=== PATIENT | female | born 1950 | race Caucasian/White ===

== ENCOUNTER → 2017-11-19 | Outpatient (CLI) | payer OTHER ==
[~2017-11-19] MED LIST: FISH OIL300 MG PO; PANTOPRAZOLE SO40 MG PO; PRAVASTATIN PO; SYNTHROID125 MCG PO
--- NOTE | 2017-11-19 12:51 | Diagnostic Imaging Report ---
PROCEDURE:PELVIC ULTRASOUND COMPARISON:None. INDICATIONS:LOWER ABDOMINAL TENDERNESS, BLOATING TECHNIQUE:A pelvic ultrasound was completed in the usual manner. FINDINGS: UTERUS: Size is 5.3 x 4.1 x 4 cm with heterogeneous echotexture. Multiple fibroids, including: * Left upper uterine 2.1 x 2.3 x 2.2 cm subserosal exophytic fibroid * Left uterine 2.2 x 1.8 x 2.1 cm partially calcified subserosal fibroid * Left uterine 1.5 x 0.8 x 0.9 cm intramural fibroid. Endometrial thickness is 7 mm, within normal limits in the absence of postmenopausal bleeding and mildly thickened if postmenopausal bleeding is present. There is suggestion of a 0.6 x 0.9 cm rounded hyperechoic prominence within the endometrial cavity which is partially outlined by a trace amount of fluid (for example on time stamp 11:53:22 AM). No definite vascular stalk is identified. OVARIES: Right ovary measures 1.8 x 1.1 x 0.9 cm. No masses or cysts. Left ovary not visualized. Left adnexal 4.1 x 2.7 x 3.3 cm anechoic cyst without nodule or septation. CUL-DE-SAC:Trace free fluid, nonspecific. OTHER:Negative. CONCLUSION: 1. Questionable subcentimeter endometrial polyp. Consider saline infused hysterosonography for further evaluation. 2. Multiple uterine fibroids. 3. Left adnexal 4.1 cm simple appearing cyst. Recommend follow up pelvic ultrasound in 12 months. Dictated by: Harvinder Tan M.D. on 11/19/2017 at 12:51 Electronically approved by: Harvinder Tan M.D. on 11/19/2017 at 12:51
--- NOTE | 2017-11-19 12:52 | Diagnostic Imaging Report ---
PROCEDURE:TRANSVAGINAL ULTRASOUND COMPARISON:None. INDICATIONS:LOWER ABDOMINAL TENDERNESS, BLOATING TECHNIQUE: Grayscale transverse and sagittal transabdominal and transvaginal images were obtained of the pelvis. Transvaginal imaging was medically necessary to better evaluate the endometrium and adnexa. FINDINGS: Please see same day additional ultrasound order for full report. CONCLUSION: Please see same day additional ultrasound order for full report. Dictated by: Harvinder Tan M.D. on 11/19/2017 at 12:52 Electronically approved by: Harvinder Tan M.D. on 11/19/2017 at 12:52
== END ==
LOC: US 10:37
PROVIDERS: ATTEND Family Medicine
DX: R10.819 Abdominal tenderness, unspecified site (principal); R14.0 Abdominal distension (gaseous); Z85.3 Personal history of malignant neoplasm of breast
CPT/HCPCS: 76830; 76856

== ENCOUNTER → 2018-10-20 | Outpatient (CLI) | payer OTHER ==
[~2018-10-20] MED LIST changes: +IOPAMIDOL 370 MG/ML 200 ML INFUS..BTL INJ ONE
[2018-10-20 16:51] LABS: BLOOD UREA NITROGEN 14 mg/dL (7-26); BUN/CREATININE RATIO 19 (6-25); CREATININE, SERUM 0.72 mg/dL (0.57-1.11); EST GLOMERULAR FILTRATION RATE > 60 ML/MIN (60-)
--- NOTE | 2018-10-20 18:48 | Diagnostic Imaging Report ---
EXAM: CT Abdomen and Pelvis WITH contrast INDICATION: ^[id number] ^1746 ^LUQ RLQ PAIN; EPIGASTRIC PAIN COMPARISON: None. TECHNIQUE: Abdomen and pelvis were scanned utilizing a multidetector helical scanner from the lung base to the pubic symphysis after administration of IV contrast. Coronal and sagittal reformations were obtained. Routine protocol was performed. Scan was performed when during portal venous phase. IV CONTRAST: 100 mL of Isovue-300 ORAL CONTRAST: Water RADIATION DOSE: Total DLP: ... mGy*cm Estimated effective dose: (DLP x 0.015 x size factor) mSv COMPLICATIONS: None FINDINGS: LINES and TUBES: None. LOWER THORAX: Unremarkable HEPATOBILIARY: Few a scattered low-attenuation cystic lesions throughout the liver measuring up to 1.3 cm appeared to represent simple cysts. No biliary ductal dilation. GALLBLADDER: No radio-opaque stones or sludge. No wall thickening. SPLEEN: No splenomegaly. PANCREAS: No focal masses or ductal dilatation. ADRENALS: No adrenal nodules KIDNEYS/URETERS: Kidneys enhance symmetrically. No hydronephrosis. No cystic or solid mass lesions. No stones. GI TRACT: Mild wall thickening of a few loops of the small bowel in the left upper quadrant and mid abdomen surrounded by mild fat stranding but without bowel dilatation, for example on series 2, image 50 and 53. Appendix is normal. PELVIC ORGANS/BLADDER: There is a well-circumscribed low-attenuation 6.0 x 3.8 x 4.1 cm cystic lesion in the region of the left adnexa on series 2, image 65. There is a calcified fibroid in the fundus of the uterus measuring 1.6 cm. The urinary bladder appears unremarkable. LYMPH NODES: No lymphadenopathy. VESSELS: Atherosclerotic calcifications of the abdominal aorta without aneurysm. PERITONEUM / RETROPERITONEUM: No free air or fluid. BONES: Moderate degenerative changes at L5-S1. SOFT TISSUES: Unremarkable. IMPRESSION: Mild wall thickening and surrounding inflammatory changes of a few loops of the small bowel in the upper abdomen may reflect nonspecific infectious or inflammatory process. Recommend follow-up in 6-8 weeks. Indeterminate large left adnexal cystic lesion measuring up to 6 cm. Recommend further evaluation with pelvic ultrasound and/or MRI pelvis with and without contrast to exclude neoplasm. Signed by: Dr. Susana Falk M.D. on 10/20/2018 6:44 PM
== END ==
LOC: CT 15:50
PROVIDERS: ATTEND Family Medicine
DX: R10.12 Left upper quadrant pain (principal); R10.13 Epigastric pain; R10.31 Right lower quadrant pain
CPT/HCPCS: 36415; 74177; 82565; 84520; Q9967

== ENCOUNTER → 2018-10-27 | Day surgery (SDC) | payer OTHER ==
[2018-10-25 17:15] LABS: BASOPHILS # (AUTO) 0.1 (0.0-0.1); BASOPHILS % 1.2 % (0.0-1.0); EOSINOPHILS # (AUTO) 0.1 (0.0-0.4); EOSINOPHILS % 1.9 % (0.0-6.0); HEMATOCRIT 43.8 % (34.2-44.1); HEMOGLOBIN 14.7 g/dL (12.0-16.0); LYMPHOCYTES # (AUTO) 2.4 (1.0-3.2); LYMPHOCYTES % 31.9 % (18.0-39.1); MEAN CORPUSCULAR HEMOGLOBIN 32.1 pg (28-32); MEAN CORPUSCULAR HGB CONC 33.6 g/dL (31-35); MEAN CORPUSCULAR VOLUME 95.6 fL (81-99); MONOCYTES # (AUTO) 0.7 (0.2-0.8); MONOCYTES % 9.4 % (4.4-11.3); NEUTROPHILS # (AUTO) 4.1 (2.1-6.9); NEUTROPHILS % 55.3 % (38.7-80.0); PLATELET COUNT 285 x10e3/uL (140-360); RED BLOOD COUNT 4.58 x10e6/uL (3.6-5.1); RED CELL DISTRIBUTION WIDTH 12.2 % (11.7-14.4)
[~2018-10-27] MED LIST changes: +ANASTROZOLE1 MG PO; +CITRACAL + BON1 EACH PO; +FENTANYL CITRATE/PF 100MCG/2 ML INJ ONE; +HYOSCYAMINE SULFATE 0.5 MG/ML INJ ONE; +IBANDRONATE SO150 MG PO; -IOPAMIDOL 370 MG/ML 200 ML INFUS..BTL INJ ONE; +MIDAZOLAM HCL 2 MG/2 ML VIAL ONE; +PROPOFOL IV EMULSION 10 MG/ML 50 ML VIAL ONE
--- OUTSIDE RECORDS SUMMARY | 2018-10-27 09:24 | XMS REPORT ---
[facility] Address Unknown Phone Unavailable Care Team Providers Care Generation Manager Name Role Phone PAIGE WILLIAM Unavailable Unavailable Payers Payer Name Policy Type Policy Number Effective Date Expiration Date Problems This patient has no known problems. Allergies, Adverse Reactions, Alerts Allergy Name Allergy Type Status Severity Reaction(s) Onset Date Inactive Date Treating Clinician Comments erythromycin base DA Active MO 2017-02-08 00:00:00 Medications This patient has no known medications. Results Test Description Test Time Test Comments Text Results Atomic Results Result Comments CT ABDOMEN/PELVIS W 2018-10-20 18:08:00 [place] [address] Patient Name: BRO THAYER MR #: [id number] : 1950 Age/Sex: 68/F Req #: [id number] Adm Physician: Ordered by: PAIGE WILLIAM DO Report #: [id number] Location: CT Room/Bed: Procedure: [id number] CT/CT ABDOMEN/PELVIS W Exam Date: 10/20/18 Exam Time: 1746 REPORT STATUS: Signed EXAM: CT Abdomen and Pelvis WITH contrast INDICATION: [id number] LUQ RLQ PAIN; EPIGASTRIC PAIN COMPARISON: None. TECHNIQUE: Abdomen and pelvis were scanned utilizing a multidetector helical scanner from the lung base to the pubic symphysis after administration of IV contrast. Coronal and sagittal reformations were obtained. Routine protocol was performed. Scan was performed when during portal venous phase. IV CONTRAST: 100 mL of Isovue-300 ORAL CONTRAST: Water RADIATION DOSE: Total DLP: ... mGy*cm Estimated effective dose: (DLP x 0.015 x size factor) mSv COMPLICATIONS: None FINDINGS: LINES and TUBES: None. LOWER THORAX: Unremarkable HEPATOBILIARY: Few a scattered low-attenuation cystic lesions throughout the liver measuring up to 1.3 cm appeared to represent simple cysts. No biliary ductal dilation. GALLBLADDER: No radio-opaque stones or sludge. No wall thickening. SPLEEN: No splenomegaly. PANCREAS: No focal masses or ductal dilatation. ADRENALS: No adrenal nodules KIDNEYS/URETERS: Kidneys enhance symmetrically. No hydronephrosis. No cystic or solid mass lesions. No stones . GI TRACT: Mild wall thickening of a few loops of the small bowel in the left upper quadrant and mid abdomen surrounded by mild fat stranding but without bowel dilatation, for example on series 2, image 50 and 53. Appendix is normal. PELVIC ORGANS/BLADDER: There is a well-circumscribed low-attenuation 6.0 x 3.8 x 4.1 cm cystic lesion in the region of the left adnexa on series 2, image 65. There is a calcified fibroid in the fundus of the uterus measuring 1.6 cm. The urinary bladder appears unremarkable. LYMPH NODES: No lymphadenopathy. VESSELS: Atherosclerotic calcifications of the abdominal aorta without aneurysm. PERITONEUM / RETROPERITONEUM: No free air or fluid. BONES: Moderate degenerative changes at L5-S1. SOFT TISSUES: Unremarkable. IMPRESSION: Mild wall thickening and surrounding inflammatory changes of a few loops of the small bowel in the upper abdomen may reflect nonspecific infectious or inflammatory process. Recommend follow-up in 6-8 weeks. Indeterminate large left adnexal cystic lesion measuring up to 6 cm. Recommend further evaluation with pelvic ultrasound and/or MRI pelvis with and without contrast to exclude neoplasm. Signed by: Dr. Cesia Thurman M.D. on 10/20/2018 6:44 PM Dictated By: CESIA THURMAN MD 43 Transcribed By: KAY on 10/20/181843 COPY TO: PAIGE WILLIAM DO US PELVIS COMPLETE NON OB [place] [address] Patient Name: BRO THAYER MR #: [id number] : 1950 Age/Sex: 67/F Req #: [id number] Adm Physician: Ordered by: PAIGE WILLIAM DO Report #: [id number] Location: US Room/Bed: Procedure: [id number] US/US PELVIS COMPLETE NON OB Exam Date: Exam Time: REPORT STATUS: Signed PROCEDURE: PELVIC ULTRASOUND COMPARISON: None. INDICATIONS: LOWER ABDOMINAL TENDERNESS, BLOATING TECHNIQUE: A pelvic ultrasound was completed in the usual manner. FINDINGS: UTERUS: Size is 5.3 x 4.1 x 4 cm with heterogeneous echotexture. Multiple fibroids, including: * Left upper uterine 2.1 x 2.3 x 2.2 cm subserosal exophytic fibroid * Left uterine 2.2 x 1.8 x 2.1 cm partially calcified subserosal fibroid * Left uterine 1.5 x 0.8 x 0.9 cm intramural fibroid. Endometrial thickness is 7 mm, within normal limits in the absence of postmenopausal bleeding and mildly thickened if postmenopausal bleeding is present. There is suggestion of a 0.6 x 0.9 cm rounded hyperechoic prominence within the endometrial cavity which is partially outlined by a trace amount of fluid (for example on time stamp 11:53:22 AM). No definite vascular stalk is identified. OVARIES: Right ovary measures 1.8 x 1.1 x 0.9 cm. No masses or cysts. Left ovary not visualized. Left adnexal 4.1 x 2.7 x 3.3 cm anechoic cyst without nodule or septation. CUL-DE-SAC: Trace free fluid, nonspecific. OTHER: Negative. CONCLUSION: 1. Questionable subcentimeter endometrial polyp. Consider saline infused hysterosonography for further evaluation. 2. Multiple uterine fibroids. 3. Left adnexal 4.1 cm simple appearing cyst. Recommend follow up pelvic ultrasound in 12 months. Dictated by: Harvinder Burt M.D. on 11/19/2017 at 12:51 Electronically approved by: Harvinder Burt M.D. on 11/19/2017 at 12:51 Dictated By: HARVINDER BURT MD 1251 Transcribed By: BERNA on 11/19/17 1251 COPY TO: PAIGE WILLIAM DO TRANSVAGINAL [place] [address] Patient Name: BRO THAYER MR #: [id number] : 1950 Age/Sex: 67/F Req #: [id number] Adm Physician: Ordered by: PAIGE WILLIAM DO Report #: [id number] Location: Room/Bed: Procedure: [id number] US/US TRANSVAGINAL Exam Date: 11/19/17 Exam Time: 1126 REPORT STATUS: Signed PROCEDURE: TRANSVAGINAL ULTRASOUND COMPARISON: None. INDICATIONS: LOWER ABDOMINAL TENDERNESS, BLOATING TECHNIQUE: Grayscale transverse and sagittal transabdominal and transvaginal images were obtained of the pelvis. Transvaginal imaging was medically necessary to better evaluate the endometrium and adnexa. FINDINGS: Please see same day additional ultrasound order for full report. CONCLUSION: Please see same day additional ultrasound order for full report. Dictated by: Harvinder Burt M.D. on 11/19/2017 at 12:52 Electronically approved by: Harvinder Burt M.D. on 11/19/2017 at 12:52 Dictated By: HARVINDER BURT MD 1252 Transcribed By: BERNA on 11/19/17 1252 COPY TO: PAIGE WILLIAM DO
--- OUTSIDE RECORDS SUMMARY | 2018-10-27 09:24 | XMS REPORT | Clinical Summary ---
Author Author [facility] Address Unknown Phone Unavailable Care Team Providers Care Court Advocate Name Role Phone Mickey Dean MD PCP Allergies Comments Active Allergy Reactions Severity Noted Date Stomach Erythromycin Other (See 07/06/2007 Comments) Medications End Date Status Medication Sig Dispensed Refills Start Date Active SYNTHROID 125 mcg tablet 0 7 Active pravastatin (PRAVACHOL) TAKE ONE (1) 0 80 MG tablet TABLET(S) BY 7 MOUTH ONCE A DAY. Active pantoprazole (PROTONIX) TAKE ONE (1) 5 40 MG EC tablet TABLET(S) BY 7 MOUTH EVERY MORNING BEFORE MEALS. Active anastrozole (ARIMIDEX) 1 Take 1 mg by 0 mg chemo tablet mouth daily. Active calcium carb and Take by 0 citrate-vitD3 (CITRACAL + mouth. D SLOW RELEASE) 600 mg calcium- 500 unit tablet extended release 08/08/2019 Active ibandronate (BONIVA) 150 Take 1 tablet 3 tablet 3 mg tablet (150 mg 8 total) by mouth every 30 (thirty) days. Take in AM with glass of water prior to food, don't lie down for 30 minutes. 01/19/2019 Active ibandronate (BONIVA) 150 TAKE ONE (1) 3 tablet 3 mg tabletIndications: TABLET(S) BY 9 Ductal carcinoma in situ MOUTH IN THE (DCIS) of left breast MORNING WITH A GLASS OF WATER PRIOR TO FOOD EVERY 30 DAYS. DO NOT LAY DOWN FOR 30 MINUTES. 03/05/2018 Discontinued anastrozole (ARIMIDEX) 1 Take 1 tablet 30 tablet 11 mg chemo tablet (1 mg total) 7 by mouth daily for 30 days. 10/20/2018 Discontinued ibandronate (BONIVA) 150 Take 1 tablet 3 tablet 3 08/04/201 mg tabletIndications: (150 mg 7 Ductal carcinoma in situ total) by (DCIS) of left breast mouth every 30 (thirty) days. Take in AM with glass of water prior to food, don't lie down for 30 minutes. 06/05/2018 anastrozole (ARIMIDEX) 1 Take 1 tablet 90 tablet 3 03/07/201 mg chemo tablet (1 mg total) 8 by mouth daily for 90 days. 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 Encounters Care Team Description Date Type Specialty Philomena Hobbs MD Ductal carcinoma in situ (DCIS) of left breast 10/20/2018 Refill Oncology Philomena Hobbs MD 08/08/2018 Telephone Oncology Philomena Hobbs MD 08/05/2018 Telephone Oncology Philomena Hobbs MD 08/05/2018 Orders Only Oncology Philomena Hobbs MD Ductal carcinoma in situ (DCIS) of left breast (Primary Dx) 07/18/2018 Office Visit Oncology Philomena Hobbs MD Ductal carcinoma in situ (DCIS) of left breast (Primary Dx) 06/17/2018 Orders Only Oncology Patricia Rizzo RN 06/17/2018 Documentation Oncology Patricia Rizzo RN 04/14/2018 Documentation Patricia Nino RN 03/16/2018 Documentation Philomena Negrete MD 03/05/2018 Refill Patricia Nino RN 02/24/2018 Documentation Oncology Philomena Hobbs MD 02/01/2018 Telephone Oncology Philomena Hobbs MD 01/12/2018 Orders Only Oncology Philomena Hobbs MD Malignant neoplasm of female breast, unspecified estrogen receptor status, unspecified laterality, unspecified site of breast (Primary Dx) 01/04/2018 Office Visit Oncology Trey Taylor MD Low back pain, unspecified back pain laterality, unspecified chronicity, with sciatica presence unspecified (Primary Dx) 12/23/2017 Transcribe Physical Therapy Orders Patricia Rizzo RN 12/21/2017 Documentation Oncology Patricia Rizzo RN Malignant neoplasm of female breast, unspecified estrogen receptor status, unspecified laterality, unspecified site of breast (Primary Dx) 12/21/2017 Orders Only Oncology Patricia Rizzo RN 12/21/2017 Orders Only Oncology Philomena Hobbs MD 10/29/2017 Telephone Oncology Philomena Hobbs MD 10/28/2017 Telephone Oncology Philomena Hobbs MD 10/28/2017 Orders Only Oncology after 10/26/2017 Social History Date Tobacco Use Types Packs/Day Years Used Former Smoker Smokeless Tobacco: Former User Sex Assigned at Date Recorded Not on file Industry Job Start Date Occupation Not on file Not on file Not on file Travel End Travel History Travel Start No recent travel history available. Last Filed Vital Signs Time Taken Vital Sign Reading 07/18/2018 11:51 AM [employer]OTEL ASSIST[employer] GENERAL MANA[employer] Blood Pressure 135/84 07/18/2018 11:51 AM HOTEL ASSISTANT GENERAL MANAGER Pulse 86 07/18/2018 11:51 AM HOTEL ASSISTANT GENERAL MANAGER Temperature 36.1 C (97 F) - Respiratory Rate - - Oxygen Saturation - - Inhaled Oxygen - Concentration 07/18/2018 11:51 AM HOTEL ASSISTANT GENERAL MANAGER Weight 64.5 kg (142 lb 3 oz) 07/18/2018 11:51 AM HOTEL ASSISTANT GENERAL MANAGER Height 167.6 cm (5' 6") 07/18/2018 11:51 AM HOTEL ASSISTANT GENERAL MANAGER Body Mass Index 22.95 Plan of Treatment Care Team Description Date Type Specialty Philomena Hobbs MD [address] [address] [phone] 01/18/2019 Office Visit Oncology Health Maintenance Due Date Last Done Comments COLON CANCER SCREENING 1998 SHINGLES VACCINES (#1) 1998 65+ PNEUMOCOCCAL VACCINE 2013 (1 of 2 - PCV13) PNEUMOCOCCAL 2013 POLYSACCHARIDE VACCINE AGE 65 AND OVER INFLUENZA VACCINE 03/23/2018 BREAST CANCER SCREENING 07/12/2020 07/12/2018, 12/30/2017, 10/13/2017 Procedures Comments Procedure Name Priority Date/Time Associated Diagnosis US BREAST COMPLETE LEFT Routine 07/12/2018 US BREAST COMPLETE LEFT Routine 12/30/2017 after 10/26/2017 Results * US Breast Complete Left (07/12/2018) Only the most recent of 2 results within the time period is included. Narrative Performed At after 10/26/2017 Insurance Payer Benefit Subscriber ID Type Phone Address Plan / Group CIG[employer] CIGNA OPEN xxxxxxxxxxx HMO ACCESS/NET WORK Advance Directives Patient has advance care planning documents on file. For more information, reji portillo contact: Neil Betancourt [address] [place] [address]
[2018-10-27 13:30] VITALS: BP 103/68
--- NOTE | 2018-10-27 20:47 | Operative Report ---
DATE OF PROCEDURE: 10/27/2018 SURGEON: Zachery Newell MD PROCEDURES: Esophagogastroduodenoscopy with biopsies and colonoscopy with polypectomy and biopsies. INDICATIONS FOR EGD: Upper abdominal pain, postprandial bloating. INDICATIONS FOR COLONOSCOPY: Surveillance colonoscopy, personal history of colon polyps. MEDICATIONS: The patient was done under MAC. Please see anesthesiologist's note. PROCEDURE IN DETAIL: With the patient in left lateral decubitus position, the flexible fiberoptic Olympus gastroscope was introduced into the esophagus under direct visualization without any difficulty. There were some patchy erythema noted in the distal esophagus. A small sliding hiatal hernia was traversed with ease and the scope was advanced into the stomach. Mucosa overlying the antrum and the body revealed some patchy erythema and low-grade to moderate edema and biopsies were obtained and sent to stain for Helicobacter pylori. Pylorus was of normal contour and shape, was intubated with ease and the scope was advanced all the way to the second portion of the duodenum. Biopsies were obtained from the proximal second portion as well as from the duodenal bulb. The scope was then withdrawn back into the stomach and retroflexed. Mucosa overlying the fundus and the cardia appeared to be within normal limits. The scope was then straightened out, it was subsequently withdrawn. The patient tolerated the procedure well. IMPRESSION: 1. Distal esophagitis. 2. Small sliding hiatal hernia. 3. Gastritis, biopsied. Biopsies sent to stain for Helicobacter pylori. PLAN: Follow up histology. Initiate Protonix 40 mg one p.o. q.a.m. a.c. The patient was then turned around after adequate lubrication of the anal canal. Flexible fiberoptic Olympus colonoscope was inserted into the rectum with ease and advanced all the way to the cecum. A minute polyp was hot biopsied from the cecum and polypectomy site was hemoclipped. The cecal valve was intubated and the scope was advanced into the terminal ileum. There were some mild inflammatory changes noted in the terminal ileum and biopsies were obtained. The scope was then withdrawn back into the colon. It was then withdrawn slowly. Mucosa overlying the ascending, transverse, descending, sigmoid grossly appeared to be within normal limits other than from minimally scattered diverticular disease. The scope was then retroflexed into the distal rectum. The area around the dentate line appeared to be within normal limits. The scope was then straightened out, it was subsequently withdrawn. The patient tolerated the procedure well. IMPRESSION: 1. Cecal polyp, hot biopsied, site hemoclipped. 2. Diverticulosis. PLAN: Follow up histology. Initiate VSL #3 one p.o. daily. The patient might benefit from a followup colonoscopy in 5 years. MD LUCIO Cai/TIFFANIE /[id number] cc: Anish Dean, DO
== END | disposition home or self-care (01) ==
LOC: OR 09:15
PROVIDERS: ATTEND Internal Medicine Gastroenterology
DX: K29.70 Gastritis, unspecified, without bleeding (principal); K63.5 Polyp of colon; K20.9 Esophagitis, unspecified; K44.9 Diaphragmatic hernia without obstruction or gangrene; K57.30 Diverticulosis of large intestine without perforation or abscess without bleeding; C50.912 Malignant neoplasm of unspecified site of left female breast; H53.001 Unspecified amblyopia, right eye; E03.9 Hypothyroidism, unspecified; Z79.890 Hormone replacement therapy; E78.00 Pure hypercholesterolemia, unspecified; Z88.1 Allergy status to other antibiotic agents; Z01.810 Encounter for preprocedural cardiovascular examination; Z01.812 Encounter for preprocedural laboratory examination; Z85.850 Personal history of malignant neoplasm of thyroid; Z92.3 Personal history of irradiation; Z87.891 Personal history of nicotine dependence
CPT/HCPCS: 36415; 43239; 45384; 85025; 93005; J1980; J2250; J2704; 45378; 45385

== ENCOUNTER → 2018-12-26 | Outpatient (CLI) | payer OTHER ==
[~2018-12-26] MED LIST changes: -FENTANYL CITRATE/PF 100MCG/2 ML INJ ONE; -HYOSCYAMINE SULFATE 0.5 MG/ML INJ ONE; +IOPAMIDOL 370 MG/ML 200 ML INFUS..BTL INJ ONE; -MIDAZOLAM HCL 2 MG/2 ML VIAL ONE; -PROPOFOL IV EMULSION 10 MG/ML 50 ML VIAL ONE; +SODIUM CHLORIDE 0.9% 50ML 50 ML ONE
[2018-12-26 16:45] LABS: BLOOD UREA NITROGEN 14 mg/dL (7-26); BUN/CREATININE RATIO 20 (6-25); EST GLOMERULAR FILTRATION RATE > 60 ML/MIN (60-)
--- NOTE | 2018-12-26 17:52 | Diagnostic Imaging Report ---
EXAM: CT Abdomen and Pelvis WITH contrast INDICATION: ^U ^ABNORMAL CT DONE 2018 COMPARISON: CT dated 10/20/2018 TECHNIQUE: Abdomen and pelvis were scanned utilizing a multidetector helical scanner from the lung base to the pubic symphysis after administration of IV contrast. Coronal and sagittal reformations were obtained. Dose modulation, iterative reconstruction, and/or weight based adjustment of the mA/kV was utilized to reduce the radiation dose to as low as reasonably achievable. Routine protocol was performed. Scan was performed when during portal venous phase. IV CONTRAST: 100 mL of Isovue-370 ORAL CONTRAST: Water COMPLICATIONS: None RADIATION DOSE: Total DLP: 244.85 mGy*cm Estimated effective dose: (DLP x 0.015 x size factor) mSv CTDIvol has been reviewed. It is below the limits set by the Radiation Protocol Committee (RPC). FINDINGS: LINES and TUBES: None. LOWER THORAX: Unremarkable HEPATOBILIARY: Examination of hepatic hypodensities, likely cysts. Unchanged hyperdense 1.4 cm lesion in the inferior right hepatic lobe (series 2, image 43). Borderline hepatomegaly. No biliary ductal dilation. GALLBLADDER: No radio-opaque stones or sludge. No wall thickening. SPLEEN: No splenomegaly. Stable splenic hypodensity, likely a cyst. PANCREAS: No focal masses or ductal dilatation. ADRENALS: No adrenal nodules KIDNEYS/URETERS: Kidneys enhance symmetrically. No hydronephrosis. No cystic or solid mass lesions. No stones. GI TRACT: No abnormal distention, wall thickening, or evidence of bowel obstruction. Appendix is normal. PELVIC ORGANS/BLADDER: 6.3 x 4.3 cm left adnexal cystic structure, previously 6.1 x 4.1 cm. Calcified uterine fibroid. Bladder is unremarkable. LYMPH NODES: No lymphadenopathy. VESSELS: There is mild atherosclerotic disease in the aorta and major arterial branches. PERITONEUM / RETROPERITONEUM: No free air or fluid. BONES: Unremarkable. SOFT TISSUES: L5-S1 degenerative changes. IMPRESSION: 1. No acute inflammatory process in the abdomen/pelvis. 2. Mild wall thickening and surrounding inflammation of few small bowel loops, noted on prior CT, are not visualized on current exam. 3. Slight interval increase in size of left adnexal cystic lesion. Recommend correlation with nonurgent pelvic ultrasound or MRI. Also surgical consultation can be considered in this postmenopausal patient. 4. Hepatic hypodensities are probably cysts. There is also a hyperenhancing inferior hepatic lobe lesion. Liver mass protocol MRI can be obtained for characterization. Signed by: Dr. Estevan Hay MD on 12/26/2018 5:49 PM
== END ==
LOC: CT 15:57
PROVIDERS: ATTEND Internal Medicine Gastroenterology
DX: Z09 Encounter for follow-up examination after completed treatment for conditions other than malignant neoplasm (principal); R93.5 Abnormal findings on diagnostic imaging of other abdominal regions, including retroperitoneum
CPT/HCPCS: 36415; 74177; 82565; 84520; Q9967

== ENCOUNTER → 2019-03-14 | Outpatient (CLI) | payer OTHER ==
[~2019-03-14] MED LIST changes: +GADOBENATE DIMEGLUMINE 1 ML IV ONE; -IOPAMIDOL 370 MG/ML 200 ML INFUS..BTL INJ ONE; +SODIUM CHLORIDE 0.9% 100 ML 100 ML ONE; -SODIUM CHLORIDE 0.9% 50ML 50 ML ONE
[2019-03-14 15:15] LABS: BLOOD UREA NITROGEN 12 mg/dL (7-26); BUN/CREATININE RATIO 17 (6-25); CREATININE, SERUM 0.69 mg/dL (0.57-1.11); EST GLOMERULAR FILTRATION RATE > 60 ML/MIN (60-)
--- NOTE | 2019-03-15 14:39 | Diagnostic Imaging Report ---
EXAMINATION: MRI Abdomen with and without contrast. TECHNIQUE: Axial T1 nonfat sat in and out of phase, axial T2 fat sat, coronal T2 nonfat sat, axial DWI and ADC MR images of the abdomen were obtained before and after the administration of 13 cc of gadolinium. Axial T1 fat sat GRE dynamic images in precontrast, arterial, venous and delayed phases were obtained. CLINICAL HISTORY:Hepatic lobe lesion, abnormal CT COMPARISON: CT abdomen and pelvis 12/26/2018 and, 10/20/2018 and 09/08/2011 FINDINGS: LOWER THORAX: Unremarkable. LIVER: Mild hepatomegaly, measuring 17.2 cm in the right midclavicular line. Normal contour.. No hepatic signal abnormality. * 1.0 x 0.8 cm T1 hypointense, T2 hyperintense lesion in hepatic segment VII (series 10, image 9), which shows no postcontrast enhancement. No restricted diffusion. This lesion measured approximately 0.[address] dated 09/08/2011. * 0.5 m T2 hyperintense, T1 hypointense lesion in hepatic segment II (series 10, image 102) which shows no postcontrast enhancement. No restricted diffusion. Not clearly visualized on CT dated 09/08/2011 * 1.3 x 1.1 cm and 1.3 x 1.1 cm T2 hyperintense, T1 hypointense lesions in hepatic segment V/ (series 5, images 20 and 21), which shows no postcontrast enhancement. There are questionable thin nonenhancing/nonvascular septations in these lesions. No restricted diffusion. These lesions measured 0.8 x 0.6 cm and 0.7 x [address] dated 09/08/2011 * 1.6 x 1.0 cm T1 isointense, T2 mildly hyperintense lesion (series 5, image 33) in hepatic segment V, which shows relatively homogeneous postcontrast enhancement in arterial and portal venous phase (series 10, images 80 and 125), and retains contrast in the delayed images (series 10, image 170). No restricted diffusion. This lesion is stable in size when compared to CT dated 10/20/2018 and was not visualized on CT dated 09/08/2011. No other focal lesions. BILIARY: No ductal dilatation or filling defect. The gallbladder has a normal appearance. PANCREAS: No mass or ductal dilatation. SPLEEN: No splenomegaly. 1.0 cm T2 hyperintense, T1 hypointense, nonenhancing lesion in the posterior aspect of the spleen (series 5, image 12), likely representing a small cyst. ADRENALS: No nodules. KIDNEYS: No hydronephrosis or solid enhancing mass in the imaged portion of the kidneys. PERITONEUM / RETROPERITONEUM: No upper abdominal free fluid. GI TRACT: The visualized bowel shows no dilation or obstruction. LYMPH NODES: No upper abdominal lymphadenopathy. VESSELS: The celiac trunk, superior and inferior mesenteric and bilateral renal arteries are patent. The portal, superior mesenteric and splenic veins are patent. No collateral circulation. BONES AND SOFT TISSUES: No abnormal bone marrow signal. No soft tissue abnormalities. IMPRESSION: 1. Mild hepatomegaly. 2. Interval increase in size of simple and possibly minimally complex cysts in the liver since 2012, as described. No suspicious features. No further follow-up or diagnostic imaging is indicated. 3. A 1.6 cm enhancing lesion in hepatic segment V likely represents a rapidly filling hemangioma. Signed by: Dr. Evgeny Gaona M.D. on 03/15/2019 2:36 PM
== END ==
LOC: MRI 14:38
PROVIDERS: ATTEND Internal Medicine Gastroenterology
DX: K76.9 Liver disease, unspecified (principal)
CPT/HCPCS: 36415; 74183; 82565; 84520

== ENCOUNTER → 2021-09-09 | Outpatient (CLI) | payer MEDICARE ==
[~2021-09-09] MED LIST changes: -GADOBENATE DIMEGLUMINE 1 ML IV ONE; -SODIUM CHLORIDE 0.9% 100 ML 100 ML ONE
== END ==
LOC: MRI 08:50
PROVIDERS: ATTEND Family Medicine
DX: M51.36 Other intervertebral disc degeneration, lumbar region (principal)
CPT/HCPCS: 72148

== ENCOUNTER → 2021-09-17 | Outpatient (CLI) | payer MEDICARE | LOC: RAD 14:17 | PROVIDERS: ATTEND Family Medicine | DX: J98.8 Other specified respiratory disorders (principal) | CPT/HCPCS: 71046 ==

== ENCOUNTER 2023-11-22 10:17 | Outpatient (RCR) | payer MEDICARE | END 2023-12-21 | LOC: PT 10:17 | PROVIDERS: ATTEND Orthopaedic Surgery | DX: S72.002D Fracture of unspecified part of neck of left femur, subsequent encounter for closed fracture with routine healing (principal); M62.81 Muscle weakness (generalized); R26.2 Difficulty in walking, not elsewhere classified; Z91.81 History of falling ==